=== PATIENT | female | born 1990 | race Caucasian/White ===

== ENCOUNTER → 2018-04-11 13:40 | Outpatient (CLI) | payer OTHER, SELFPAY ==
[2018-04-11 15:57] LABS: Absolute Lymphocyte Count 2.92 X10^3/ul (0.83-4.51); Absolute Neutrophil Count 2.8 X10^3/uL (2.0-7.7); Basophil# 0.02 X10^3/uL; Basophil% 0.3 % (0-1); Eosinophil# 0.13 X10^3/uL; Hematocrit 39.5 % (37-47); Hemoglobin 12.6 g/dl (12.0-15.0); Lymphocyte # 2.92 X10^3/ul (4.0); Lymphocyte % 45.5 % (19-41); Mean Corp Hgb Conc 31.9 g/gl (32-36); Mean Platelet Vol. 13.1 fl (6.2-12.0); Monocyte# 0.52 X10^3/uL; Monocyte% 8.1 % (0-10); Neutrophil # 2.83 X10^3/uL (2.7-7.7); Neutrophil % 44.1 % (47-70); Platelet Count 224 K/mm3 (150-450); RBC Distribution Width SD 43.3 fl (35.1-43.9); Red Blood Count 4.34 M/mm3 (4.2-5.4); White Blood Count 6.4 K/mm3 (4.4-11.0)
[2018-04-11 16:04] LABS: T3 Total - Triiodothyronine 1.01 ng/mL (0.6-1.81); Vitamin B12 857 pg/mL (211-911); Vitamin D,25 Hydroxy 31.6 ng/mL (29.95-100.01)
[2018-04-11 16:05] LABS: POSITIVE COUNT NO; POSITIVE DIFFERENTIAL NO; POSITIVE MORPHOLOGY NO
[2018-04-11 16:09] LABS: ALB/GLOB Ratio 1.1 RATIO (0.9-2.4); AST(SGOT) 21 U/L (15-37); Alanine Aminotransfer ALT/SGPT 47 U/L (13-56); Albumin, Serum 3.8 g/dL (3.2-5.0); Alkaline Phosphatase 23 U/L (45-117); Anion Gap 8 (5-15); BUN 12 mg/dL (7-18); BUN/Creat Ratio 15.9 RATIO (10-20); Calcium,Total 8.9 mg/dL (8.5-10.1); Chloride 107 mmol/L (98-107); Creatinine, Serum 0.75 mg/dL (0.55-1.02); EST Glomerular Filtration Rate 99 mL/min (>60); Est Glom Filt Rate - Afr Amer 120 mL/min (>60); Globulin 3.6 g/dL (2.2-4.2); Glucose 80 mg/dL (74-106); Potassium 4.1 mmol/L (3.5-5.1); Protein, Total 7.4 g/dL (6.4-8.2); Sodium Level 142 mmol/L (136-145); T4 Free Direct 0.97 ng/dL (0.76-1.46); Thyroid Stim Hormone (TSH) 1.15 uIU/mL (0.358-3.74)
== END ==
PROVIDERS: Family Provider Family Medicine; PCP Family Medicine; Visit Provider Family Medicine
DX: D64.9 Anemia, unspecified (principal); R53.83 Other fatigue; E55.9 Vitamin D deficiency, unspecified; E53.8 Deficiency of other specified B group vitamins
CPT/HCPCS: 36415; 80053; 82306; 82607; 84439; 84443; 84480; 85025

== ENCOUNTER → 2018-06-29 16:00 | Outpatient (CLI) | payer MEDICARE, SELFPAY ==
[2015-04-30 12:14] VITALS: BMI 22.0
== END ==
PROVIDERS: Family Provider Family Medicine; PCP Family Medicine; Visit Provider Family Medicine
DX: Z12.4 Encounter for screening for malignant neoplasm of cervix (principal)

== ENCOUNTER → 2020-04-08 07:55 | Outpatient (CLI) | payer BC, SELFPAY ==
--- NOTE | 2020-04-08 14:50 | NEURO ---
NCS and/or EMG Patient Report Ordering Doctor: Gisele Leija DATE OF SERVICE: 04/08/20 Oly Stanford presents for electrodiagnostic testing of the right upper limb. She reports numbness and tingling in the first 3 digits of the right hand. Electrodiagnostic findings: Right median motor nerve demonstrates normal distal latency and amplitude with reduced conduction velocity. Normal right ulnar motor response, including conduction across the elbow. Normal right median ulnar F waves. Prolonged right median sensory latency at the wrist. Normal ulnar and radial sensory responses. On needle EMG, all muscles tested in the right upper limb, as well as the right cervical paraspinals, showed no evidence of denervation with normal motor unit action potentials. Electrodiagnostic impression: This is an abnormal study in the right upper limb. 1. Electrodiagnostic findings demonstrate right-sided median mononeuropathy. This is consistent with a mild right carpal tunnel syndrome. 2. No electrodiagnostic evidence is noted for cervical radiculopathy. If there are any further questions, please do not hesitate to contact me
== END ==
PROVIDERS: PCP Family Medicine; Referring Provider Family Medicine; Visit Provider Family Medicine
DX: G56.01 Carpal tunnel syndrome, right upper limb (principal)
CPT/HCPCS: 95886; 95910

== ENCOUNTER → 2022-01-21 | Outpatient (CLI) | payer BC, SELFPAY ==
[2022-01-29 09:02] LABS: HPV Reflexed? NOT INDICATED
== END | disposition home or self-care (01) ==
PROVIDERS: PCP Family Medicine; Referring Provider Family Medicine; Visit Provider Family Medicine
DX: Z12.4 Encounter for screening for malignant neoplasm of cervix (principal)
CPT/HCPCS: 88175; G0145

== ENCOUNTER → 2022-02-04 | Outpatient (CLI) | payer BC, SELFPAY ==
[2022-02-04 15:11] LABS: Absolute Lymphocyte Count 3.11 X10^3/uL (0.83-4.51); Absolute Neutrophil Count 3.3 X10^3/uL (2.0-7.7); Basophil# 0.04 X10^3/uL; Basophil% 0.6 % (0-1); Eosinophil# 0.14 X10^3/uL; Hematocrit 41.2 % (37-47); Hemoglobin 13.7 g/dL (12.0-15.0); Lymphocyte # 3.11 X10^3/ul (0.83-4.51); Lymphocyte % 43.4 % (19-41); Mean Corp Hgb Conc 33.3 g/dL (32-36); Mean Corpuscular Hgb 29.7 pg (27.0-32.0); Mean Corpuscular Volume 89.2 fL (81-99); Mean Platelet Vol. 11.9 fl (6.2-12.0); Monocyte# 0.59 X10^3/uL; Monocyte% 8.2 % (0-10); NRBC Flagged by Analyzer 0 % (0-5); Neutrophil # 3.27 X10^3/uL (2.7-7.7); Neutrophil % 45.5 % (47-70); Platelet Count 265 K/mm3 (150-450); RBC Distribution Width CV 12.5 % (11.6-14.6); RBC Distribution Width SD 40.9 fl (35.1-43.9); Red Blood Count 4.62 M/mm3 (4.2-5.4); White Blood Count 7.2 K/mm3 (4.4-11.0)
[2022-02-04 15:34] LABS: AST(SGOT) 23 U/L (15-37); Alanine Aminotransfer ALT/SGPT 48 U/L (13-56); Albumin, Serum 3.9 g/dL (3.2-5.0); Alkaline Phosphatase 25 U/L (45-117); Anion Gap 7 (5-15); BUN 17 mg/dL (7-18); BUN/Creat Ratio 23.7 RATIO (10-20); Calcium,Total 8.9 mg/dL (8.5-10.1); Chloride 103 mmol/L (98-107); Cholesterol 155 mg/dL (200); Creatinine, Serum 0.72 mg/dL (0.55-1.02); EST Glomerular Filtration Rate 102 mL/min (>60); Est Glom Filt Rate - Afr Amer 123 mL/min (>60); Globulin 3.8 g/dL (2.2-4.2); Glucose 94 mg/dL (74-106); High Density Lipoprotein 54 mg/dL; Protein, Total 7.7 g/dL (6.4-8.2); Sodium Level 136 mmol/L (136-145); Triglycerides 88 mg/dL; Very Low Density Lipoprotein 18 mg/dL (5-40)
== END | disposition home or self-care (01) ==
LOC: MTLAB 11:08
PROVIDERS: PCP Family Medicine; Referring Provider Family Medicine; Visit Provider Family Medicine
DX: Z01.419 Encounter for gynecological examination (general) (routine) without abnormal findings (principal); J30.9 Allergic rhinitis, unspecified; R03.0 Elevated blood-pressure reading, without diagnosis of hypertension; R13.10 Dysphagia, unspecified
CPT/HCPCS: 36415; 80053; 80061; 84443; 85025; 86038

== ENCOUNTER → 2023-07-31 | Outpatient (CLI) | payer BC, SELFPAY ==
--- NOTE | 2023-07-31 14:28 | NEURO ---
NCS and/or EMG Patient Report Ordering Doctor: Neymar Desouza DATE OF SERVICE: 07/31/23 Clinical Summary: This is a 32 year old female patient presenting with symptoms of bilateral hand numbness/tingling. In the right hand, the aforementioned symptoms are most intense and she is having pain and weakness. This EMG/NCS was performed to evaluate for bilateral carpal tunnel syndrome. Nerve Conduction Studies Summary: The right median-D2 SNAP amplitude is reduced. The right median-APB CMAP amplitude is reduced. Needle Examination Summary: Needle examination demonstrated increased insertional activity and spontaneous activity (positive sharp and fibrillation potentials) in the right abductor pollicis brevis and opponens pollicis muscles. Impression: There is electrodiagnostic evidence of a severe distal right median mononeuropathy with active denervation and axonal loss, which can be best localized to the the recurrent thenar branch distal to the carpal tunnel. A neuromuscular ultrasound is recommended to evaluate for the exact location of the median nerve lesion. There is no electrodiagnostic evidence of a left median mononeuropathy at the wrist (carpal tunnel syndrome). Multi Select Codes Neurology Neurology Interp Codes: 26647-64 Musc test done w/n test comp (interp) (2) and 35443-96 Nrv cndj test 13/> studies (interp)
== END | disposition home or self-care (01) ==
PROVIDERS: PCP Family Medicine; Referring Provider Student in an Organized Health Care Education/Training Program; Visit Provider Student in an Organized Health Care Education/Training Program
DX: R20.2 Paresthesia of skin (principal); M25.532 Pain in left wrist; M25.531 Pain in right wrist
CPT/HCPCS: 95886; 95913

== ENCOUNTER → 2023-10-25 | Outpatient (CLI) | payer BC, OTHER, SELFPAY ==
[2023-10-25 18:09] LABS: Absolute Lymphocyte Count 3.65 X10^3/uL (0.83-4.51); Absolute Neutrophil Count 3.9 X10^3/uL (2.0-7.7); Basophil# 0.06 X10^3/uL; Basophil% 0.7 % (0-1); Eosinophil# 0.07 X10^3/uL; Eosinophils% 0.8 % (0-5); Hematocrit 41.9 % (37-47); Hemoglobin 13.8 g/dL (12.0-15.0); Lymphocyte # 3.65 X10^3/ul (0.83-4.51); Lymphocyte % 44.3 % (19-41); Mean Corp Hgb Conc 32.9 g/dL (32-36); Mean Corpuscular Hgb 29.7 pg (27.0-32.0); Mean Corpuscular Volume 90.1 fL (81-99); Mean Platelet Vol. 11.4 fl (6.2-12.0); Monocyte# 0.58 X10^3/uL; NRBC Flagged by Analyzer 0 % (0-5); Neutrophil # 3.87 X10^3/uL (2.7-7.7); Neutrophil % 47.1 % (47-70); Platelet Count 335 K/mm3 (150-450); RBC Distribution Width CV 12.5 % (11.6-14.6); Red Blood Count 4.65 M/mm3 (4.2-5.4); White Blood Count 8.2 K/mm3 (4.4-11.0)
== END | disposition home or self-care (01) ==
LOC: MTLAB 16:12
PROVIDERS: PCP Family Medicine; Referring Provider Nurse Practitioner Family; Visit Provider Nurse Practitioner Family
DX: R59.9 Enlarged lymph nodes, unspecified (principal)
CPT/HCPCS: 36415; 85025

== ENCOUNTER → 2024-02-12 | Outpatient (CLI) | payer BC, OTHER, SELFPAY ==
--- NOTE | 2024-02-12 15:20 | RAD_ITS ---
EXAM: XR CHEST, 2 VIEWS CLINICAL INDICATION: ASSESS LUNGS FOR ABNORMALITIES -- HX OF ASTHMA TECHNIQUE: Frontal and lateral views of the chest. COMPARISON: No relevant prior studies available. FINDINGS: LUNGS AND PLEURAL SPACES: No significant abnormality. No consolidation or edema. No pneumothorax. No effusion. HEART: No significant abnormality. Cardiac silhouette not enlarged. MEDIASTINUM: Central airways and mediastinal contour are unremarkable. BONES/JOINTS: No significant abnormality. No acute fracture. SOFT TISSUES: No significant abnormality. RAD/Chest PA and Lateral IMPRESSION: No radiographic evidence of acute cardiopulmonary disease. Electronically Signed: Juan C Muller DO at 22:34 EDT ,
== END | disposition home or self-care (01) ==
LOC: MTRAD 15:15
PROVIDERS: PCP Family Medicine; Referring Provider Nurse Practitioner Family; Visit Provider Nurse Practitioner Family
DX: R05.9 Cough, unspecified (principal)
CPT/HCPCS: 71046

== ENCOUNTER → 2024-03-25 | Outpatient (CLI) | payer BC, OTHER, SELFPAY | END | disposition home or self-care (01) | LOC: LAB 07:23 | PROVIDERS: PCP Family Medicine; Referring Provider Otolaryngology; Visit Provider Otolaryngology | DX: R05.9 Cough, unspecified (principal) | CPT/HCPCS: 87070; 87205 ==

== ENCOUNTER → 2024-05-13 | Outpatient (CLI) | payer BC, OTHER, SELFPAY ==
[2024-05-13 17:59] LABS: Absolute Lymphocyte Count 3.82 X10^3/uL (0.83-4.51); Absolute Neutrophil Count 3.5 X10^3/uL (2.0-7.7); Basophil# 0.07 X10^3/uL; Basophil% 0.8 % (0-1); Eosinophil# 0.17 X10^3/uL; Hemoglobin 14.5 g/dL (12.0-15.0); Lymphocyte # 3.82 X10^3/ul (0.83-4.51); Lymphocyte % 45.7 % (19-41); Mean Corp Hgb Conc 32.2 g/dL (32-36); Mean Corpuscular Hgb 28.6 pg (27.0-32.0); Mean Corpuscular Volume 88.8 fL (81-99); Monocyte# 0.76 X10^3/uL; Monocyte% 9.1 % (0-10); NRBC Flagged by Analyzer 0 % (0-5); Neutrophil # 3.45 X10^3/uL (2.7-7.7); Neutrophil % 41.3 % (47-70); Platelet Count 345 K/mm3 (150-450); RBC Distribution Width CV 11.7 % (11.6-14.6); Red Blood Count 5.07 M/mm3 (4.2-5.4); White Blood Count 8.4 K/mm3 (4.4-11.0)
[2024-05-13 18:44] LABS: ALB/GLOB Ratio 1.1 RATIO (0.9-2.4); AST(SGOT) 23 U/L (15-37); Alanine Aminotransfer ALT/SGPT 44 U/L (13-56); Alkaline Phosphatase 39 U/L (45-117); Anion Gap 8 (5-15); BUN 13 mg/dL (7-18); BUN/Creat Ratio 20.2 RATIO (10-20); Calcium,Total 9.5 mg/dL (8.5-10.1); Chloride 105 mmol/L (98-107); Creatinine, Serum 0.64 mg/dL (0.55-1.02); EST Glomerular Filtration Rate 114 mL/min (>60); Est Glom Filt Rate - Afr Amer 138 mL/min (>60); Free T3 4.6 pg/mL (2.18-3.98); Globulin 3.8 g/dL (2.2-4.2); Glucose 87 mg/dL (74-106); Potassium 4.1 mmol/L (3.5-5.1); Protein, Total 7.8 g/dL (6.4-8.2); Sodium Level 140 mmol/L (136-145); T4 Free Direct 1.43 ng/dL (0.76-1.46); Thyroid Stim Hormone (TSH) 0.019 uIU/mL (0.358-3.740)
== END | disposition home or self-care (01) ==
LOC: MTLAB 16:07
PROVIDERS: PCP Family Medicine; Referring Provider Family Medicine; Visit Provider Family Medicine
DX: E03.9 Hypothyroidism, unspecified (principal); R05.9 Cough, unspecified
CPT/HCPCS: 36415; 80053; 84439; 84443; 84481; 85025

== ENCOUNTER → 2024-05-20 | Outpatient (CLI) | payer BC, OTHER, SELFPAY | END | disposition home or self-care (01) | LOC: PSN 06:43 | PROVIDERS: PCP Family Medicine; Referring Provider Family Medicine; Visit Provider Family Medicine | DX: R05.9 Cough, unspecified (principal) | CPT/HCPCS: 94060; 94726; 94729 ==

== ENCOUNTER → 2024-07-19 | Outpatient (CLI) | payer BC, OTHER, SELFPAY ==
--- NOTE | 2024-07-19 14:15 | US_ITS ---
PROCEDURE: THYROID REASON FOR EXAM: DRY COUGH ABNORMAL TSH TECHNIQUE: Thyroid ultrasound COMPARISON: None. FINDINGS: Right thyroid lobe measures 4.5 cm x 1.5 cm x 1.7 cm. Left thyroid lobe measures 3.8 cm x 1.3 cm x 1.4 cm. Isthmus thickness is2.3 mm. Thyroid Size: Normal Background Echotexture: Heterogeneous Thyroid Nodules: None Inferior to the right lobe of the thyroid, there is a 1 cm x 0.5 cm x 1.1 cm hypoechoic solid nodule. This may represent a parathyroid gland. US/Thyroid IMPRESSION: HETEROGENEOUS APPEARANCE OF THE THYROID GLAND WITHOUT EVIDENCE OF MASS. CORRELA TE WITH THYROID FUNCTION STUDIES. FINDINGS PRESENT COULD BE ASSOCIATED WITH UNDERLYING CHRONIC THYROIDITIS. Reading Location: [place] [id number]
== END | disposition home or self-care (01) ==
LOC: US 14:14
PROVIDERS: PCP Family Medicine; Referring Provider Family Medicine; Visit Provider Family Medicine
DX: R94.6 Abnormal results of thyroid function studies (principal); R05.8 Other specified cough
CPT/HCPCS: 76536

== ENCOUNTER → 2024-07-29 | Outpatient (CLI) | payer BC, OTHER, SELFPAY ==
[2024-07-29 15:57] LABS: PTHIN 61 pg/mL (11-61)
[2024-07-30 00:01] LABS: Free T3 3.2 pg/mL (2.18-3.98); Vitamin D,25 Hydroxy 37.1 ng/mL (30-100)
== END | disposition home or self-care (01) ==
LOC: MTLAB 12:33
PROVIDERS: PCP Family Medicine; Referring Provider Family Medicine; Visit Provider Family Medicine
DX: E03.9 Hypothyroidism, unspecified (principal); E21.5 Disorder of parathyroid gland, unspecified
CPT/HCPCS: 36415; 82306; 83970; 84439; 84443; 84481

== ENCOUNTER → 2024-10-02 | Outpatient (CLI) | payer BC, OTHER, SELFPAY ==
[2024-10-02 18:30] LABS: Free T3 3.1 pg/mL (2.18-3.98); T4 Total, Thyroxin 6.4 ug/dL (4.8-13.9)
== END | disposition home or self-care (01) ==
LOC: MTLAB 15:57
PROVIDERS: PCP Family Medicine; Referring Provider Nurse Practitioner Family; Visit Provider Nurse Practitioner Family
DX: E03.9 Hypothyroidism, unspecified (principal)
CPT/HCPCS: 36415; 84432; 84436; 84439; 84443; 84481; 86376; 86800

== ENCOUNTER 2024-11-04 08:00 | Outpatient (RCR) | payer BC, OTHER, SELFPAY ==
--- NOTE | 2024-10-18 09:55 | HP.OTEVAL_ITS ---
Patient's Visit Information Visit Information Visit Information: WAGNER SOLOMON is a 34 year old F, referred to Occupational Therapy by Dr. Neymar Desouza DO, with a diagnosis of CTS. Date of Evaluation: 10/18/24 Occupational Therapist: FRITZ Deal/Derick, CHT Subjective Subjective: This 34 year old female was seen for OT eval with dx of Bilateral CTS. pt underwent a CTR in 2023. pt is a dental hygienist and after her three month follow up Dr. john notice pt was having difficulty with right opposition to LF and continued muscle wasting of right thenar muscle group. pt states she would like to know what exercises she can do to encourage return of her strength. 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 Rehabilitation General Assessment: pt demo with right median motor branch involvement limiting pts tripod pinch strength and opposition to perform daily occupations. Pt would benefit from therapy services 4- 6 visit to ed. pt on nerve recovery after release, strengthening and FM tasks to improve opposition to improve pts tripod pinch for work and day tasks. Today therapist ed. pt on strengthening to muscles of hand /thumb pt was given handouts, ed. on scar mtg. pt demo understanding and agree to POC. Rehabilitation Potential: Good Anticipated Interventions Anticipated Interventions: A/AAROM/PROM, Strengthening, Scar Care and Triggerpoint Release Visit Plan Frequency: Every Other Week Duration: 3 Months TEXT: Thank you for the opportunity to evaluate your patient. For Medicare and Medicare HMO plans, please review the plan of care and approve it. It will need to be FAXED BACK to us at [phone] for Medicare purposes. Please let me know if there are questions or concerns regarding this plan of care. Physician Signature: Date:
--- NOTE | 2024-11-04 15:17 | HP.OTDCSUM ---
Discharge Summary D/C Summary: It has been my pleasure to treat WAGNER SOLOMON under orders from Dr. Neymar Desouza, , for the diagnosis of CTS for a total of 3 visit(s). Please see the following information for a summary of their discharge status. Overall Improvement % Improvement: 90 Objective Objective/Function: Wrist: right 60# left 60# Tripod Chief [employer] Station Operator: right 7# left 12# Lateral Pinch: right 12# left 15# pt has made great gains with her strength. pt states she will cont. with her HEP. 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 (goal met) Plan Plan: Plans to be done d/t insurance probably not covering and doing well encouraged her to call in if she has concerns. D/C Information Discharge Comments: pt has made great gains with ROM and strength- pt request d/c at this time as she has returned to her PLOF. OT goals have been met. pt agrees to cont.with HEP and precautions. d/c sentence: If there are questions or concerns regarding this patient's occupational therapy, please fell free to call me at [phone]. Thank you for the referral of this patient. Sincerely, Katiuska June, OTR/L, CHT
== END 2024-11-04 15:55 | disposition home or self-care (01) ==
LOC: OT 08:00
PROVIDERS: PCP Family Medicine; Referring Provider Student in an Organized Health Care Education/Training Program; Visit Provider Student in an Organized Health Care Education/Training Program
DX: G56.03 Carpal tunnel syndrome, bilateral upper limbs (principal)
CPT/HCPCS: 97035; 97110; 97166